=== PATIENT | male | born 1960 | race Caucasian/White ===

== ENCOUNTER → 2017-09-25 | Outpatient (CLI) | payer OTHER ==
[~2017-09-25] MED LIST: ACYCLOVIR 400400 MG PO; CIPROFLOXIN HC2.5 M1 OPHTHALMIC; KEFLEX500 MG PO; NOHOMEMEDICATIONS; WELLBUTRIN 75 M75 M1 PO
== END ==
LOC: M.ULTRA 13:57
DX: S80.12XA Contusion of left lower leg, initial encounter (principal); X58.XXXA Exposure to other specified factors, initial encounter; Y93.89 Activity, other specified; Y92.89 Other specified places as the place of occurrence of the external cause; Y99.8 Other external cause status